=== PATIENT | male | born 1985 | race Caucasian/White ===

== ENCOUNTER 2020-04-14 12:07 | Emergency (ER) | payer OTHER ==
[~2020-04-14] VITALS: Ht 175.3 cm; Wt 79.4 kg
[2020-04-14 12:14] VITALS: BP 130/72
[2020-04-14] MEDS ORDERED: SULF1TAB48 PO (12:55)
[2020-04-14] MEDS ORDERED: DOXY50CA2 PO (12:55)
[2020-04-14] MEDS ORDERED: LIDOCAINE /MPF 1% VIAL 5 ML VIAL ONE (13:01)
[2020-04-14] MEDS ORDERED: CEFTRIAXONE 1 G VIAL ONE (13:01)
[2020-04-14] MEDS: CEFTRIAXONE 1 G VIAL IM ONE (13:08)
--- NOTE | 2020-04-14 13:08 | NUR ---
Patient discharged to home in stable condition. Written and verbal after care instructions given. Patient verbalizes understanding of instruction. Pt ambulatory with a steady gait
== END 2020-04-14 13:13 | disposition home or self-care (01) ==
LOC: ER 12:22
DX: L03.213 Periorbital cellulitis (principal); Z59.0 Homelessness; Z79.899 Other long term (current) drug therapy
CPT/HCPCS: 96372; 99283; J0696; J3490

== ENCOUNTER 2020-08-18 03:00 | Emergency (ER) | payer OTHER ==
[~2020-08-18] VITALS: Ht 175.3 cm; Wt 74.8 kg
[~2020-08-18 03:00] MED LIST: DOXY50CA2 PO; SULF1TAB48 PO
--- NOTE | 2020-08-18 03:05 | NUR ---
CHA CAME IN FOR UPPER LEFT ARM ABSCESS X 5 DAYS, RED/WARM TO TOUCH, ADMITS TO IVDU. CHA IS A/OX4, RR ARE EVEN AND UNLABORED, NO SIGNS OF SOB. WILL CONTINUE TO MONITOR.
[2020-08-18] MEDS ORDERED: LIDOCAINE 1%-EPI 1:100,000 20 ML VIAL ONE (03:11)
--- NOTE | 2020-08-18 03:15 | NUR ---
AT [facility]
[2020-08-18] MEDS ORDERED: CEPH500T PO (03:26)
[2020-08-18] MEDS ORDERED: SULF1TAB48 PO (03:26)
[2020-08-18 03:33] VITALS: BP 122/72
--- NOTE | 2020-08-18 03:33 | NUR ---
Patient discharged to home in stable condition. Written and verbal after care instructions given. Patient verbalizes understanding of instruction.
== END 2020-08-18 03:33 | disposition home or self-care (01) ==
LOC: ER 03:05
DX: L02.414 Cutaneous abscess of left upper limb (principal); Z59.0 Homelessness; Z79.899 Other long term (current) drug therapy
CPT/HCPCS: 10061; 99284; A6407; J3490